=== PATIENT | female | born 1945 | race Caucasian/White ===

== ENCOUNTER 2020-10-16 05:13 | Inpatient (IN) ==
--- NOTE | 2020-09-28 11:41 | PAT Medication Instructions ---
Medication Instructions Date of Service September 28, 2020 Home Medications multivitamin 1 cap PO QAM tramadol 50 mg PO Q8H PRN DO NOT take the morning of surgery multivitamin 1 cap PO QAM Take morning of surgery With a small sip of water, OTHERWISE NOTHING TO EAT OR DRINK AFTER MIDNIGHT: tramadol 50 mg PO Q8H PRN (okay to take up to 4 hours prior to surgery if needed) Take evening before surgery tramadol 50 mg PO Q8H PRN (if needed) Other Notes If you have any questions please call us at [phone] or [phone] or [phone] or [phone]
--- NOTE | 2020-10-04 11:05 | Anesthesiology Consultation ---
Date of Service October 04, 2020 Assessment & Plan (1) Encounter for pre-operative examination: COVID screening: Per assessment on 10/04: Travel screen negative, no known COVID- 19 positive contacts or current COVID-19 related symptoms. Patient vaccinated. Patient had COVID 04/2020 was in [place] 18 days/PNA COVID > resolved except mild, rare cough. Surgeon arranging preop COVID testing. Awaiting results. Chart Review Chart Review: Acceptable Risk for Surgery (pending surgeon-ordered PCP clearance) and Patient seen in Pre Admission Testing Teaching & Discussion Pre-Anesthesia Teaching/Discussion Notes: Instructed NPO after midnight before surgery,except medications with 15 cc of water. Medication instructions provided according to the PAT guidelines. History Surgery Operation Date: 10/16/20 09:10 Proposed Procedures p Left Total Posterior Hip Arthroplasty - Yoav Peres DO Height/Weight Height: 5 ft 10 in Weight: 119.3 kg Allergies Allergy/AdvReac Type Severity Reaction Status Date / Time No Known Allergies Allergy Unverified 09/21/20 13:47 Medications Home Medications Medication Instructions Recorded Confirmed Last Taken multivitamin 1 cap PO QAM 09/21/20 09/21/20 Unknown tramadol 50 mg PO Q8H PRN 09/21/20 09/21/20 Unknown Past Medical History Medical History History of COVID-19 04/2020 > was in [place] 18 days/PNA COVID > resolved with residual mild, rare cough Hx of blood clots LLE ("COVID blood clot") > AC since discontinued Obesity Osteoarthritis Exercise / Class Metabolic Activity II 4-5 Yardwork/Stairs/Walk up hill Past Surgical History Surgical History History of left knee replacement History of lumbar fusion History of right hip replacement Hx of colonoscopy Past Anesthesia History No Hx of Anesthesia Complications and No Family Hx of Anesthesia Complications History of PONV No Hx of PONV and No Hx of Motion Sickness Social History Smoking Status: Never smoker Do You Dip or Chew Tobacco: No Hx Alcohol Use: No Hx Substance Use: No Review of Systems Patient denies chest pain, shortness of breath, dyspnea on exertion, fever, chills, cough, wheezing, palpitations. Physical Exam Vital Signs VITALS BP 110/73 P 85 TEMP 98.3 SP02 95%RA RESP 16 PHYSICAL Mildly decreased cervical extension range of motion. Full TMJ range of motion. TMD 3.5 finger breaths Mallampati Score 1 Dentition: missing molars, several "repaired" teeth Lungs: clear throughout to auscultation Cardiac: regular rate and rhythm, no murmurs noted Spine: normal Carotid arteries: negative bruit Extremities: no edema Lab Results Anesthesia Preop Results Results Anesthesia Widget: WBC 6.92 K/uL (4.8-10.8) 10/04/20 Hgb 14.8 g/dL (12.0-16.0) 10/04/20 Hct 43.7 % (37-47) 10/04/20 Plt 222 K/uL (130-400) 10/04/20 PT 10.1 Seconds (9.0-12.0) 10/04/20 PTT 25.2 Seconds (21.0-31.0) 10/04/20 INR 1.0 (0.9-1.1) 10/04/20 HA1c 6.3 % (4.5-5.6) H 10/04/20 Urine Color Dark Yellow 10/04/20 Urine Appearance Clear (Clear) 10/04/20 Urine pH 5.0 (4.5-7.5) 10/04/20 Urine Specific [place] 1.028 (1.000-1.030) 10/04/20 Urine Protein Negative (Negative) 10/04/20 Urine Glucose (UA) Negative (Negative) 10/04/20 Urine Ketones Trace (Negative) H 10/04/20 Urine Blood Negative (Negative) 10/04/20 Urine Nitrite Positive (Negative) A 10/04/20 Urine Bilirubin 1+ (Negative) H 10/04/20 Urine Urobilinogen Negative (Negative) 10/04/20 Urine Leukocyte Esterase 1+ (Negative) H 10/04/20 Urine WBC (Auto) 5-10 /hpf (0-5) H 10/04/20 Urine RBC (Auto) 5-10 /hpf (0-4) H 10/04/20 Urine Hyaline Casts (Auto) 1-5 /lpf (0-5) 10/04/20 Urine Epithelial Cells (Auto) >30 /lpf (0-5) H 10/04/20 Urine Bacteria (Auto) 2+ (Negative) H 10/04/20 Blood Type B Positive 10/04/20 Antibody Screen NEGATIVE 10/04/20 Lab Comments: Surgeon's office made aware of abnormal UA. Testing Electrocardiogram Date: 05/05/20 SR with 75bpm. Marked LAD. Low voltage QRS. PRWP, cannot exclude age indeterminate anterior OH. NS TWA. Unremarkable ECHO done 05/01/20. Chest X-Ray Date: 07/28/20 Extensive peripheral predominant interstitial airspace opacity is seen throughout both lungs. This is similar in appearance to the prior studies and likely represents residual scarring or fibrosis in the setting of prior Covid pneumonia. Left-sided aortic arch contains atherosclerotic calcification. Echocardiogram Date: 05/01/20 EF 60 to 65%. Wall motion is normal. No regional wall motion abnormalities. RVD. Grade 1 diastolic dysfunction. No significant valvular disease.
--- NOTE | 2020-10-14 12:38 | History & Physical Report ---
Date of Service October 16, 2020 Assessment & Plan (1) Degenerative joint disease of left hip: I have indicated the patient for left total hip replacement. The risks, benefits and complications of surgery were explained to the patient which include but not limited to infection, acute blood loss, DVT/PE, injury to nerves, vessels, bone, soft tissue, arthrofibrosis, chronic pain, failure of the prosthesis, hip dislocation, leg length discrepancy, need for additional surgery, cardiac and pulmonary events and . The patient wished to proceed with surgery and informed consent was obtained at this time. We will plan for Xarelto post-operatively for DVT prophylaxis. DVT earlier in the year after COVID dx. Upon discharge the patient will be discharged home with home health services. Appropriate clearances by PCP were obtained. History of Present Illness Chief Complaint: Left hip pain/DJD Primary Care Provider: NO PCP The patient is a 75 year old female who presents with complaints of severe left hip pain and DJD. The patient has failed outpatient conservative treatments to this point which included NSAIDs, IA corticosteroid injection, home exercise/walking program. The patient's pain and limited function have progressed to the point where they severely hinder their activities of daily living and they no longer tolerate exercise programs. They are requesting to proceed with total hip replacement surgery. Allergies Allergy/AdvReac Type Severity Reaction Status Date / Time No Known Allergies Allergy Verified 10/16/20 05:34 Home Medications Medication Instructions Recorded Confirmed Type multivitamin 1 cap PO QAM 09/21/20 10/16/20 History tramadol 50 mg PO Q8H PRN 09/21/20 10/16/20 History Cipro 50 mg PO QID 10/16/20 10/16/20 History Past Med/Surg History Medical History History of COVID-19 04/2020 > was in [place] 18 days/PNA COVID > resolved with residual mild, rare cough Hx of blood clots LLE ("COVID blood clot") > AC since discontinued Obesity Osteoarthritis Surgical History History of left knee replacement History of lumbar fusion History of right hip replacement Hx of colonoscopy Social History Smoking Status: Never smoker Second Hand Exposure: No; Do You Dip or Chew Tobacco: No; Tobacco Cessation Education Requested by Patient: No Hx Alcohol Use: No Hx Substance Use: No Preferred Language: Mosotho Communication Ability: Effective Kosher Dietary Service Supervisor Required: No Beliefs That Will Affect Care: None Current Living Situation: Spouse Other Information That Helps Us Care for You: No Feels Safe at Home: Yes Safety Concerns: Feels Safe At This Time Review of Systems Review of Systems: All systems reviewed & are unremarkable except as noted in HPI & below Constitutional: as per Subjective / HPI Physical Exam Physical Exam: LLE NVSI +EHL/FHL/TA/GS SILT grossly, +2 DP pulse, compartments soft NT, limited painful ROM of the hip, antalgic gait. Constitutional: WD/WN, vitals as above Eyes: PERRL, conjunctivae normal, anicteric sclerae ENMT: external ear and nose normal, oropharynx normal Neck: trachea midline, no thyromegaly Respiratory: normal respiratory effort, lungs clear to auscultation Cardiovascular: RRR, no murmur, no edema Gastrointestinal (Abdomen): normal bowel sounds, soft, nontender, no hepatosplenomegaly Musculoskeletal: no cyanosis or clubbing, extremities motor strength 5/5 Skin: no rashes, warm and dry Neurologic: patellar DTR's 2+ bilat, sensation intact Psychiatric: A+Ox3, euthymic affect Lymphatic: no cervical or axillary lymphadenopathy Results & Data Results & Data ([facility]) Diagnostic Findings Multiple views of the hip demonstrates severe DJD with complete loss of the joint space. +osteophytes, +sclerosis, +subchondral cysts.
[2020-10-16] MEDS ORDERED: FAMOTIDINE 20 MG TAB PO SCH (06:00)
[2020-10-16] MEDS ORDERED: dexAMETHasone 4 MG TAB PO SCH (06:00)
[2020-10-16] MEDS ORDERED: TRANEXAMIC ACID 1,000 MG **IV Intra-op IV SCH (06:00)
[2020-10-16] MEDS ORDERED: ACETAMINOPHEN 500 MG TAB PO SCH (06:00)
[2020-10-16] MEDS ORDERED: TRANEXAMIC ACID 1,000 MG **IV Pre-op IV SCH (06:00)
[2020-10-16] MEDS ORDERED: LR 500ML BOLUS, THEN 15ML/HR IV SCH (06:00)
[2020-10-16] MEDS ORDERED: CeleBREX 200 MG CAP PO SCH (06:00)
[2020-10-16] MEDS ORDERED: ROPIVACAINE 0.5% HCL/PF 150 MG, BUPIVACAINE 0.75% MPF 20 ML, EPINEPHrine 30MG/30ML (OR ... INFIL SCH (06:00)
[2020-10-16] MEDS ORDERED: METOCLOPRAMIDE HCL 10 MG TABLET PO SCH (06:00)
[2020-10-16] MEDS ORDERED: BUPIVACAINE 0.5 % 5 MG/1 ML PF 10ML VIAL ONE (06:29)
[2020-10-16] MEDS ORDERED: MIDAZOLAM HCL 1 MG/ML 2ML VIAL ONE (06:40)
[2020-10-16] MEDS ORDERED: KETAMINE 50 MG/5 ML SYRINGE ONE (06:40)
[2020-10-16] MEDS ORDERED: ATROPINE SULFATE 0.1 MG/ML 10ML SYR IV PRN (06:41)
[2020-10-16] MEDS ORDERED: KETOROLAC 30 MG/ML VIAL IV PRN (06:41)
[2020-10-16] MEDS ORDERED: HYDROmorphone INJ 1 MG/ML SYRINGE IV PRN (06:41)
[2020-10-16] MEDS ORDERED: ePHEDrine sulfate 50 MG/ML AMP IV PRN (06:41)
[2020-10-16] MEDS ORDERED: ONDANSETRON INJ 2 MG/ML 2 ML VIAL IV PRN ×2 (06:41→10:35)
--- NOTE | 2020-10-16 06:48 | History & Physical Bridge Note ---
Date of Service October 16, 2020 History & Physical Bridge Note I have examined the patient, reviewed the History & Physical and in the interval since the performance of the History & Physical I have noted the following changes of clinical significance: no changes noted
[2020-10-16] MEDS ORDERED: ORTHO JOINT ANESTHETIC ONE (07:16)
[2020-10-16] MEDS ORDERED: fentaNYL citrate 100 MCG/2 ML VIAL ONE ×2 (07:17→09:28)
[2020-10-16] MEDS ORDERED: NEOSTIGMINE METHYLSULFATE 1 MG/ML 10ML VIAL ONE (07:48)
[2020-10-16] MEDS ORDERED: ROCURONIUM BROMIDE 10 MG/ML 5 ML VIAL IV ONE (07:48)
[2020-10-16] MEDS ORDERED: PROPOFOL IV EMULSION 10 MG/ML 20 ML VIAL IV ONE (07:48)
[2020-10-16] MEDS ORDERED: DEXAMETHASONE SOD INJ 4 MG/ML VIAL ONE (07:48)
[2020-10-16] MEDS ORDERED: ONDANSETRON INJ 2 MG/ML 2 ML VIAL ONE (07:48)
[2020-10-16] MEDS ORDERED: GLYCOPYRROLATE 0.2 MG/ML VIAL ONE (07:48)
[2020-10-16] MEDS ORDERED: LIDOCAINE 2% 2 ML VIAL/AMP(20MG/ML) INFIL ONE (07:48)
[2020-10-16] MEDS ORDERED: KETOROLAC 30 MG/ML VIAL ONE (08:06)
[2020-10-16] MEDS ORDERED: SODIUM CHLORIDE 0.9% INJ 10 ML VIAL ONE (08:12)
[2020-10-16] MEDS ORDERED: HYDROmorphone INJ 2 MG/ML SYR/VIAL ONE (08:12)
[2020-10-16] MEDS ORDERED: LABETALOL HCL IV 5 MG/ML 20ML IV ONE (08:16)
--- NOTE | 2020-10-16 09:09 | Post Operative Brief Note ---
Immediate Post Op Note v1 Date of Surgery October 16, 2020 Pre & Post Diagnosis Operation Date: 10/16/20 07:15 Pre-Op Diagnosis: Osteoarthritis Left Hip Post-Op Diagnosis: Osteoarthritis Left Hip I identified the patient and participated in the time-out.: Yes Procedure Operation Date: 10/16/20 07:15 Actual Procedures p Left Total Posterior Hip Arthroplasty(Left) - Yoav Peres DO Surgeon Yoav Peres DO Surgical Services Coordinator Ty Merchant Estimated Blood Loss 265 Findings Consistent with Post-Op Diagnosis Fluids See anesthesia report Specimens Femoral head Anesthesia Type General Complications none Disposition Disposition: Recovery Room Overlapping Procedure I was present for: the critical portions of procedure. I was immediately available: during the entire case. Back up surgeon: was not required during procedure.
--- NOTE | 2020-10-16 09:12 | Operative Report ---
Post Operative Report Pre & Post Diagnosis Operation Date: 10/16/20 07:15 Pre-Op Diagnosis: Osteoarthritis Left Hip Post-Op Diagnosis: Osteoarthritis Left Hip I identified the patient and participated in the time-out.: Yes Procedure Operation Date: 10/16/20 07:15 Actual Procedures p Left Total Posterior Hip Arthroplasty(Left) - Yoav Peres DO Surgeon Yoav Peres DO Level Vial Setter Ty Merchant Estimated Blood Loss 265 Findings Consistent with Post-Op Diagnosis Fluids See anesthesia report Specimens Femoral head Anesthesia Type General Complications none Disposition Disposition: Recovery Room Indications The patient is a 75-year-old female who presents with severe progressive left hip DJD who has failed outpatient conservative treatments. I indicated the patient for a total hip replacement and the risks and benefits were explained in detail which included but not limited to infection, bleeding, blood clot, damage to surrounding bone, nerves, vessels, soft tissue, hip dislocation, failure of the prosthesis, leg length discrepancy, need for additional surgery and . The patient agreed to proceed with replacement of the hip and informed consent was obtained. Appropriate clearances were obtained. Description of Procedure COMPONENTS USED: [employer] hip system: Acetabulum size 50 osteo-Ti G7, f emur size 12.5 extended offset, femoral head 36-3.5, liner 50x36, acetabular screw 25 mm x 1. Following induction of adequate general anesthesia, the patient was transferred to the OR table and placed in lateral decubitus position with right hip down. The left hip was prepped and draped in the typical sterile fashion. A timeout was performed, patient identified and site roscoe confirmed. Appropriate antibiotics were given. A standard posterolateral/Dain-Langenbeck incision was made. Subcutaneous tissue was sharply dissected. Electrocautery was utilized for hemostasis. The fascia was incised throughout the length of the wound and retracted with the Charnley retractor. The bursa was taken down and the short external rotators were identified. The piriformis was tagged with #1 Vicryl. The short external rotators and capsule were divided from the posterior aspect of the femur using electrocautery. The posterior capsule was tagged with #1 Vicryl. Both external rotators and posterior capsule were swept posterior and protected, along with protecting the sciatic nerve. The hip was dislocated by flexion and internally rotation in a controlled manner and exposure of the femoral neck was gained with an old-style Hohmann and a blunt cobra retractor. A femoral cutting guide was utilized for making the appropriate level femoral neck cut with reciprocating saw. The femoral head was removed, measured and reserved on the back table. Next, attention was turned to the acetabulum. A posterior and anterior offset retractor was placed to gain adequate exposure. Acetabular labrum as well as posterior capsule elements were removed using electrocautery and forceps. Fovea centralis was cleared of all soft tissue. Sequential reaming was performed starting at 46 mm and carried up to a 49 mm and decision was made to proceed with impaction of a 50 mm G7 Osteo-Ti cup. This was impacted and held using a single 25 mm acetabular screw. The trial acetabular liner was placed at this time. Next, attention was turned to the proximal femur where a Bovie and pickup was used to further clear short external rotators from their insertion on the femur. Box osteotome and canal f antonia was used to gain access to the femoral canal and the lateral reamer on power was used to further open the proximal lateral canal. Sequentially rasping was carried up to a 12.5 which gave good fit and fill of the proximal femur. A trial reduction was carried out with a extended offset femoral neck component a 36-3.5 mm femoral head. The trial reduction was stable in all degrees of rotation with no [id number] impingement. The hip was dislocated, trial components were removed and access to the acetabulum was re-established. The trial liner was removed and the cup was irrigated to ensure all debris was removed. The final acetabular liner was inserted and properly seated in the cup. Access to the femur was once more gained and the size 12.5 femoral stem with extended offset was impacted into position. The hip was once more assessed with the 36-3.5 mm femoral head. Stability was accessed and found to be excellent with equal leg lengths. The hip was dislocated for the last time and the final 36-3.5 ceramic femoral head was impacted in place and the hip was reduced. Range of motion was checked once again and found to be stable. A Betadine soak was performed. After 3 minutes, the hip was once more irrigated with copious sterile saline solution with bacitracin. The linda-incisional soft tissue was injected utilizing [place] ortho mix which includes a combination of Ropivicaine 0.5% 150mg, Bupivicaine 0.5%/Epinephrine 1:200,000 30ml, Toradol 30mg, Dexamethasone 4mg, Ketamine 10mg, Clonidine 100mcg and NSS 30ml Orthomix solution. The piriformis, external rotators and capsule were repaired to the greater trochanter through bone tunnels using #5 FiberWire. The fascia was closed using #1 Vicryl, subcutaneous tissue was closed using 2-0 Vicryl, and skin was closed with dena and a sterile dry dressing was applied which included loan incisional VAC. The patient tolerated the procedure well and was transported to PACU in stable condition. Due to the complex nature of the procedure, the entire surgery was performed with the operational assistance of Ty Merchant PA-C. The culinary assistant, under direct supervision, was involved in the actual performance of all aspects of the surgical procedure including patient positioning, hemostasis, tissue retraction, instrument management and wound closure. I attest to the content of the Intraoperative Record and any orders documented therein. Any exceptions are noted below.
--- NOTE | 2020-10-16 10:16 | Anesthesiology Progress Note ---
Date of Service October 16, 2020 Anesthesia Post Procedure Vital Signs Vital Signs: Temp Pulse Pulse Resp BP Pulse Ox 10/16/20 10:05 72 12 147/78 H 94 10/16/20 09:55 71 16 142/75 H 99 10/16/20 09:45 81 19 148/82 H 96 10/16/20 09:36 36.0 C L 79 18 154/83 H 99 10/16/20 06:10 36.3 C L 75 20 181/103 H 98 10/16/20 05:25 36.5 C 76 20 179/97 H 95 Transfer of Care Handoff Completed per policy Notes Mental Status: alert / awake / arousable Patient Amnestic to Procedure: Yes Nausea / Vomiting: adequately controlled Pain: adequately controlled Airway Patency, RR, SpO2: stable & adequate BP & HR: stable & adequate Hydration State: stable & adequate Anesthetic Complications: no major complications apparent
--- NOTE | 2020-10-16 10:22 | XRay Report ---
XR hip 1V LT w pelvis CLINICAL HISTORY: Postop left hip arthroplasty COMPARISON: 04/11/2011 DISCUSSION: Again evident is a total right hip arthroplasty. Now evident are postsurgical changes of a total left hip arthroplasty. There is no dislocation. No acute fractures are visualized. There is g as present within the soft tissues consistent with recent surgery. IMPRESSION: Postsurgical changes of a total left hip arthroplasty ACT 112: Negative or not required by law. Electronically signed by: Maximiliano Franklin M.D. 10/16/2020 10:21 AM
[2020-10-16] MEDS ORDERED: NALOXONE HCL 0.4 MG/1 ML VIAL/CARP IV PRN (10:35)
[2020-10-16] MEDS ORDERED: oxyCODONE HCL IR 5 MG TAB (IMMEDIATE RELEASE) PO PRN (10:35)
[2020-10-16] MEDS ORDERED: METOCLOPRAMIDE HCL INJ 5 MG/ML 2 ML VIAL IV PRN (10:35)
[2020-10-16] MEDS ORDERED: diphenhydrAMINE Capsule 25 MG CAP PO PRN (10:35)
[2020-10-16] MEDS ORDERED: HYDROmorphone INJ 0.5 MG/0.5 ML SYR IV PRN (10:35)
[2020-10-16] MEDS ORDERED: bisacodyL 10 MG SUPP PR PRN (10:35)
[2020-10-16] MEDS ORDERED: SODIUM CHLORIDE 0.9% 1000ML 1,000 ML IV SCH (10:35)
[2020-10-16] MEDS ORDERED: MAGNESIUM HYDROXIDE SUSP 30 ML UDC PO PRN (10:35)
--- NOTE | 2020-10-16 12:32 | Orthopedic Progress Note ---
Date of Service October 16, 2020 Assessment & Plan (1) Degenerative joint disease of left hip: Status post left total hip arthroplasty -Ancef x24 -DVT prophylaxis: SCDs, teds, Xarelto -Weight-bear as tolerates left lower extremity -PT/OT -Posterior hip precautions -Postoperative x-ray demonstrates a well aligned well fixed total hip prosthesis without evidence of fracture or dislocation -A.m. labs -DC planning Admission and Anticipated Discharge Date Admission Date: October 16, 2020 Subjective Post Operative Progress Note Patient seen sitting up in bed, comfortable, denies complaints, pain well controlled, no acute issues. Review of Systems Review of Systems: All systems reviewed & are unremarkable except as noted in HPI & below Constitutional: as per Subjective / HPI Physical Exam Physical Exam: LLE NVSI +EHL/FHL/TA/GS SILT grossly, +2 DP pulse, compartments soft NT, dressing cdi. Constitutional: WD/WN, vitals as above Eyes: PERRL, conjunctivae normal, anicteric sclerae ENMT: external ear and nose normal, oropharynx normal Neck: trachea midline, no thyromegaly Respiratory: normal respiratory effort, lungs clear to auscultation Cardiovascular: RRR, no murmur, no edema Gastrointestinal (Abdomen): normal bowel sounds, soft, nontender, no hepatosplenomegaly Musculoskeletal: no cyanosis or clubbing, extremities motor strength 5/5 Skin: no rashes, warm and dry Neurologic: patellar DTR's 2+ bilat, sensation intact Psychiatric: A+Ox3, euthymic affect Lymphatic: no cervical or axillary lymphadenopathy Results & Data ([facility]) Vital Signs (Past 12 Hours) Vital Signs Temp Pulse Pulse Resp BP Pulse Ox 10/16/20 11:35 36.7 C 56 L 20 154/80 H 99 10/16/20 11:00 36.5 C 55 L 20 128/78 99 10/16/20 10:30 36.5 C 66 16 129/78 97 10/16/20 10:15 36.1 C L 65 15 133/73 96 10/16/20 10:05 72 12 147/78 H 94 10/16/20 09:55 71 16 142/75 H 99 10/16/20 09:45 81 19 148/82 H 96 10/16/20 09:36 36.0 C L 79 18 154/83 H 99 10/16/20 06:10 36.3 C L 75 20 181/103 H 98 10/16/20 05:25 36.5 C 76 20 179/97 H 95
[2020-10-16] MEDS: ACETAMINOPHEN 500 MG TAB PO SCH ×2 (15:38→21:15)
[2020-10-16] MEDS: ceFAZolin 2000MG 2,000 MG/15 ML SYR IV SCH (15:41)
[2020-10-16] MEDS ORDERED: SENNA 8.6 MG TAB PO SCH (21:00)
[2020-10-16] MEDS: DOCUSATE SODIUM 100 MG CAP PO SCH (21:13)
[2020-10-17] MEDS: ceFAZolin 2000MG 2,000 MG/15 ML SYR IV SCH (00:43)
[2020-10-17 05:54] LABS: Basophils # (auto) 0.01 K/uL (0-0.2); Basophils % (auto) 0.1 %; Hematocrit (blood only) 34.8 % (37-47); Hemoglobin 11.5 g/dL (12.0-16.0); Immature Granulocytes # (auto) 0.04 K/uL (0.00-0.02); Immature Granulocytes % (auto) 0.4 %; Lymphocytes # (auto) 1.54 K/uL (1.2-3.4); Lymphocytes % (auto) 15.5 %; Mean Corpuscular Hemoglobin 30.1 pg (25-34); Mean Corpuscular Volume 91.1 fL (80-100); Mean Platelet Volume 9.4 fL (7.4-10.4); Neutrophils # (auto) 7.66 K/uL (1.4-6.5); Platelet Count 254 K/uL (130-400); RDW Coefficient of Variation 13.5 % (11.5-14.5); RDW Standard Deviation 44.5 fL (36.4-46.3); Red Blood Count 3.82 M/uL (4.2-5.4); White Blood Count 9.95 K/uL (4.8-10.8)
[2020-10-17] MEDS: ACETAMINOPHEN 500 MG TAB PO SCH ×2 (06:01→13:16)
[2020-10-17 06:26] LABS: BUN Creatinine Ratio 22.9 (10-20); Calcium 8.8 mg/dl (8.5-10.1); Creatinine Clr Calc Pharmacy 91.1 ml/min; Est GFR (African American) 91.2 ml/min; Est GFR (Non-African American) 78.7 ml/min; Potassium 4.7 mmol/L (3.5-5.1)
[2020-10-17] MEDS: DOCUSATE SODIUM 100 MG CAP PO SCH (08:07)
[2020-10-17] MEDS ORDERED: MULTIVITAMIN TAB PO SCH (09:00)
[2020-10-17] MEDS ORDERED: RIVAROXABAN 10 MG TABLET PO SCH (09:00)
--- NOTE | 2020-10-17 09:00 | Orthopedic Progress Note ---
Date of Service October 17, 2020 Assessment & Plan (1) Degenerative joint disease of left hip: Status post left total hip arthroplasty POD#1 -Ancef x24 -DVT prophylaxis: SCDs, teds, Xarelto -Weight-bear as tolerates left lower extremity -PT/OT -Posterior hip precautions -Postoperative x-ray demonstrates a well aligned well fixed total hip prosthesis without evidence of fracture or dislocation -A.m. labs - as above, hgb 11.5 -DC planning - home with Admission and Anticipated Discharge Date Admission Date: October 16, 2020 Subjective Post Operative Progress Note Patient seen sitting in chair at bedside, comfortable, denies complaints, pain well controlled, no acute issues. Denies F/C/N/V/SOB/CP. Review of Systems Review of Systems: All systems reviewed & are unremarkable except as noted in HPI & below Constitutional: as per Subjective / HPI Physical Exam Physical Exam: LLE NVSI +EHL/FHL/TA/GS SILT grossly, +2 DP pulse, compartments soft NT, dressing cdi. Constitutional: WD/WN, vitals as above Results & Data ([place]) Vital Signs (Past 12 Hours) Vital Signs Temp Pulse Pulse Resp BP BP Pulse Ox 10/17/20 07:37 36.6 C 65 18 114/71 94 10/17/20 03:18 37.2 C 68 16 135/81 90 10/16/20 22:49 36.6 C 66 16 143/78 H 95 Laboratory Results 10/17/20 10/17/20 10/16/20 Range/Units 05:26 05:26 05:43 WBC 9.95 (4.8-10.8) K/uL RBC 3.82 L (4.2-5.4) M/uL Hgb 11.5 L (12.0-16.0) g/dL Hct 34.8 L (37-47) % MCV 91.1 (80-100) fL MCH 30.1 (25-34) pg MCHC 33.0 (32-36) g/dL RDW Std Deviation 44.5 (36.4-46.3) fL RDW Coeff of John 13.5 (11.5-14.5) % Plt Count 254 (130-400) K/uL MPV 9.4 (7.4-10.4) fL Immature Gran % (Auto) 0.4 % Neut % (Auto) 77.0 % Lymph % (Auto) 15.5 % [place] % (Auto) 7.0 % Eos % (Auto) 0.0 % Baso % (Auto) 0.1 % Neut # (Auto) 7.66 H (1.4-6.5) K/uL Lymph # (Auto) 1.54 (1.2-3.4) K/uL [place] # (Auto) 0.70 H (0.11-0.59) K/uL Eos # (Auto) 0.00 (0-0.5) K/uL Baso # (Auto) 0.01 (0-0.2) K/uL Immature Gran # (Auto) 0.04 H (0.00-0.02) K/uL Sodium 140 (136-145) mmol/L Potassium 4.7 (3.5-5.1) mmol/L Chloride 109 H (98-107) mmol/L Carbon Dioxide 30 (21-32) mmol/L Anion Gap 1.0 L (3-11) BUN 17 (7-18) mg/dl Creatinine 0.74 (0.6-1.2) mg/dl Est Cr Clr Drug Dosing 91.1 ml/min Est GFR ( Amer) 91.2 ml/min Est GFR (Non-Af Amer) 78.7 ml/min BUN/Creatinine Ratio 22.9 H (10-20) Glucose 132 H (70-99) mg/dl Calcium 8.8 (8.5-10.1) mg/dl Hepatitis C Ab Screen Neg (Neg)
--- NOTE | 2020-10-17 22:48 | Discharge Summary ---
Date of Service October 17, 2020 Admission HPI Per Admitting Provider The patient is a 75 year old female who presents with complaints of severe left hip pain and DJD. The patient has failed outpatient conservative treatments to this point which included NSAIDs, IA corticosteroid injection, home exercise/walking program. The patient's pain and limited function have progressed to the point where they severely hinder their activities of daily living and they no longer tolerate exercise programs. They are requesting to proceed with total hip replacement surgery. Principal Diagnosis Left total hip replacement Discharge Exam LLE NVSI +EHL/FHL/TA/GS SILT grossly, +2 DP pulse, compartments soft NT, dressing cdi. Constitutional WD/WN, vitals as above Discharge Data Allergies Allergy/AdvReac Type Severity Reaction Status Date / Time No Known Allergies Allergy Verified 10/16/20 05:34 Procedures Performed Operation Date: 10/16/20 07:15 Actual Procedures p Left Total Posterior Hip Arthroplasty(Left) - Yoav Peres DO Hospital Course (1) Degenerative joint disease of left hip: Hospital Course: On 10/16/20 the patient was taken to the operating room, adequate anesthesia administered and underwent a left total hip arthroplasty. The patient tolerated the procedure well and was taken to the PACU in stable condition. Post- operatively the patient was started on a DVT ppx medication and given appropriate IV antibiotics. Consults were placed to physical therapy, occupational therapy and case management. On POD#1, the patient did well overnight and their pain was well controlled. Labs were drawn and the Hgb was 11.5. The patient progressed well with PT. Dressings were changed at this time and the incision was clean, dry and intact. The patients hospital stay was relatively uneventful and they were deemed stable by the orthopedic team and consultants to be discharged to SNF on 10/17/20. Discharge Instructions: Upon discharge the patient may weight bear as tolerates through their operative extremity. They were instructed to keep the incision clean and dry at all times. The patient may shower but should not submerge the incision, avoid bathing, pools and hot tubs. The patient was given a script for pain medication and should take as instructed. The patient was given a script for DVT ppx Xarelto daily and should take as directed. The patient was instructed to not drive or travel for long distances until cleared to do so. If the patient develops any symptoms of fevers, chills, nausea, vomiting, increased redness, swelling, pain or drainage from the surgical site, they should notify the office and/or proceed to the nearest emergency room. The patient should follow up in 10-14 days after surgery for their routine post-operative follow-up appointment and should call the office, to confirm the date and time. Status post left total hip arthroplasty POD#1 -Ancef x24 -DVT prophylaxis: SCDs, teds, Xarelto -Weight-bear as tolerates left lower extremity -PT/OT -Posterior hip precautions -Postoperative x-ray demonstrates a well aligned well fixed total hip prosthesis without evidence of fracture or dislocation -A.m. labs - as above, hgb 11.5 -DC planning - home with HH Total Time Total Time Spent Total Time Spent (In Minutes): 30 Discharge Plan Discharge Items Patient Disposition: Transfer [facility] Reason For Visit: Osteoarthritis Left Hip Discharge Diagnosis: Left total hip replacement Condition on Discharge: Good Activity: Per Instructions section Lifting: Wait until after follow-up appointment Bathing: Keep incision dry Bathing Comment: No bathing, pools or hot tubs. Sexual Activity: Wait until after follow-up appointment Exercise/Sports: Wait until after follow-up appointment Driving/Machine Use: No driving. Weightbearing: Full weightbearing Non-emergency contact: Primary Care Provider and Surgeon Call non-emergency contact if: you have any medication questions, your symptoms worsen, your pain is not controlled, your pain is worsening, your pain is unusual for you, your pain is concerning for you, you have a fever, your temperature is above 101, your wound has increased redness, your wound has increased drainage and your wound pain has increased Follow-up/Referrals: Tatiana Perdue M.D. [Primary Care Provider] - Diet: Regular Addtl Attending Provider Instructions: ACTIVITY RECOMMENDATIONS: SELF CARE INSTRUCTIONS AFTER TOTAL HIP REPLACEMENT Until the incision and soft tissues around your hip have healed, there is a possibility that the hip prosthesis could dislocate. A. Observe the following precautions to prevent dislocation: 1. Don't bend your hip greater than 90 degrees. 2. Avoid crossing your legs or ankles while standing or lying. 3. Sit with your feet placed 6 inches apart. 4. When sitting, keep your knees below your hips. Sit on a firm surface, avoid deep, soft chairs and couches. Use an elevated toilet seat in the bathroom. 5. Don't bend over at the waist. Use a long handled shoehorn and a sock aid to help you put on your shoes and socks. A mop man can help you bean picker machine operator objects that are too high or too low to reach. 6. Keep car riding to a minimum for at least one month after surgery. B. Your balance may be shaky for a while. Use crutches or a walker until directed by your doctor. C. Use hand rails when walking on stairs. D. Wear low heeled shoes with non-slip soles. E. Be sure that your floors are free of things that could trip you - throw rugs, electrical cords, small objects. Avoid wet and waxed floors, especially with crutches and canes. F. Try to walk several times a day with rest periods between. G. Continue with all the exercises taught to you in the hospital. Again, make walking a part of your daily routine. SPECIAL CARE INSTRUCTIONS: VERY IMPORTANT TO READ AND REVIEW A. You may still be at risk for phlebitis and blood clots. 1. Wear surgical stockings (LEXI hose) for 2 weeks after surgery to improve circulation and reduce swelling. 2. Take Xarelto 10mg daily or as directed by your doctor. This is your blood thinner. 3. High risk patients may be prescribed a stronger blood thinner if necessary. 4. If you are on Coumadin normally, your family doctor/bridges and buildings supervisor should monitor your blood work. Expect a phone call the day of or the day after bloodwork is drawn to adjust your dosage. B. You must take antibiotics before having dental work, bladder, bowel and other surgery. Your doctor will provide you with a permanent card to carry describing precautions. C. Call [facility] if you have a fever, redness or swelling around the incision, cloudy drainage from incision, or sudden increase in pain in your hip, not relieved by your regular pain medication. D. Please call the office at if you have any concerns or questions about your operation or recovery. * YOU MAY SHOWER, NO TUB BATHS UNTIL CLEARED BY YOUR DOCTOR. * WEAR LEXI HOSE 20 HOURS PER DAY FOR 2 WEEKS. * YOU SHOULD USE A WALKER OR CRUTCHES FOR 2-4 WEEKS. THIS WILL HELP PREVENT STRAIN ON YOUR HIP MUSCLE AND ALLOW IT TO HEAL PROPERLY. YOU MAY WEAN TO A CANE TOLERATED. * MOST PATIENTS WILL HAVE HOME NURSING FOR THERAPY. IF YOU DECIDE TO DO OUTPATIENT PHYSICAL THERAPY, PLEASE SCHEDULE THIS 3 TIMES PER WEEK. *THERESE incisional vac is a special dressing covering your incision. This dressing provides a sterile dry environment while you are healing. The dressing is to be left in place for 7 days post-operatively. Your home nurse or surgeon will remove. If you develop any redness or blisters or have any questions notify your surgeon immediately. FOLLOW UP VISIT: If appointment is not already scheduled: Please call [facility] to make a follow-up appointment for 2 weeks after your surgery at . Pending Studies at Discharge: No Stand-Alone Forms: My [facility], Opioid Pain Management Skilled Items Patient informed of condition?: Yes DNR: No Discharge Level of Care: Skilled Communicable Disease: No Discharge Prognosis: Stable Lines: None Urinary Catheter: No Medications and DC Order Prescriptions: New polyethylene glycol 3350 [Miralax] 17 gram powder in packet 17 g PO DAILY PRN (Reason: constipation) Qty: 5 RF: 0 oxycodone 5 mg Tablet 5 mg PO Q4H MDD 6 tabs PRN (Reason: pain) Qty: 18 RF: 0 rivaroxaban 10 mg tablet 10 mg PO DAILY Qty: 30 RF: 0 docusate sodium 100 mg Capsule 100 mg PO BID 10 Days Qty: 20 RF: 0 Continued multivitamin Capsule 1 cap PO QAM RF: 0 Cipro 50 mg PO QID RF: 0 Discontinued tramadol 50 mg Tablet 50 mg PO Q8H PRN (Reason: Pain) RF: 0 Discharge Orders: Discharge Order (Routine); Ordered 10/17/20 Ordered By: Ty Segura/Other Patient Handouts: DVT Post Op Prevention Admission Data Admit Date/Time: 10/16/20 10:02 Attending Provider: Yoav Peres Admit Provider: Yoav Peres Primary Care Provider: Tatiana Perdue Other Interventions: Discharge Summary Assessment (RN) Last Done: 10/17/20 14:24
== END 2020-10-17 15:16 | DRG 470 ==
LOC: ASU 05:13 → 3E 05:13 → OBSVTOIN 10:02